=== PATIENT | female | born 1955 | race Caucasian/White ===

== ENCOUNTER 2022-05-10 06:24 | Day surgery (SDC) | payer MEDICARE, BC, SELFPAY ==
[2022-05-03 09:36] VITALS: BMI 34.4
--- NOTE | 2022-05-06 08:35 | MHC.SHP ---
Pre-Procedural Eval Section A Date of Service: 05/06/22 The patient is an INPATIENT: No Changes since office visit: No Cold of Flu in the past 2 weeks, No New Medical Problems, No Changes in Medication and No Patient answered all questions The History & Physical has been completed within 30 days and I have reviewed it.: Yes Section B Chief Complaint: Age-related nuclear cataract, left eye Allergies: Allergies Allergy/AdvReac Type Severity Reaction Status Date / Time No Known Allergies Allergy Verified 05/03/22 09:33 Plan Diagnosis/Plan: Unchanged I have reviewed the history and physical and performed a pertinent physical examination on my patient. No changes have occurred unless specified.
--- NOTE | 2022-05-07 09:03 | P.CONAN_ITS ---
Documented by User: Octavia Weber NP 05/07/22 09:04 HPI - Anesthesia Eval Consult details Narrative: 66yo F for Left?Cataract Extraction IOL Insertion PCP cleared No previous cataract PMFSH Past Medical History Medical History Arthritis COVID-19 vaccine series completed Diabetes Elevated cholesterol GERD (gastroesophageal reflux disease) HTN (hypertension) Hypothyroid IBS (irritable bowel syndrome) Lung mass Mild memory disturbance Pernicious anemia Sleep apnea Steatosis of liver Surgical History Surgical History H/O colonoscopy History of carpal tunnel release of both wrists History of esophagogastroduodenoscopy (EGD) Hx of dilation and curettage Social History Social History Are you a primary ostomy care nurse to a significant other at home: No Do you presently have visiting nurse or other home services: No Patient Tobacco Use Status: Former Tobacco user Quit Date: age 36 Tobacco use type: Cigarette Use of substances other than those prescribed or required for medical reasons: No Have you been hit, kicked, punched, or otherwise hurt by someone within the past year? If so, by whom?: No Are you DNR?: No Advance Directives: No Advance Directives Information Provided: Yes Advance Directives on File: No Recently lost weight without trying: No Eating poorly because of decreased appetite: No Nutrition Risks: No Nutritional Risk Poor oral hygiene: No (one dental implant upper right side) Meds Allergies Allergy/AdvReac Type Severity Reaction Status Date / Time No Known Allergies Allergy Verified 05/03/22 09:33 Home Medications Medication Instructions Recorded Confirmed Last Taken Type aspirin 81 mg tablet,delayed 81 mg PO DAILY 05/03/22 05/03/22 Unknown History release atenolol 50 mg tablet 1 tab PO DAILY 05/03/22 05/03/22 05/10/22 05:15 History levothyroxine 88 mcg tablet 1 tab PO DAILY 05/03/22 05/03/22 05/10/22 05:15 History lisinopril 5 mg tablet 1 tab PO DAILY 05/03/22 05/03/22 Unknown History metformin 500 mg tablet 500 mg PO QPM 05/03/22 05/03/22 Unknown History multivitamin 1 tab PO DAILY 05/03/22 05/03/22 Unknown History omeprazole 20 mg capsule,delayed 1 cap PO BID 05/03/22 05/03/22 05/10/22 05:15 H istory release potassium chloride 20 mEq 1 tab PO DAILY 05/03/22 05/03/22 Unknown History tablet,extended release simvastatin 20 mg tablet 1 tab PO DAILY 05/03/22 05/03/22 Unknown History triamterene 37.5 1 cap PO DAILY 05/03/22 05/03/22 Unknown History mg-hydrochlorothiazide 25 mg capsule Exam Exam Date and Time: May 07, 2022902 Height,Weight and Vital Signs: Height 5 ft 1 in Weight 82.554 kg Assessment and Plan Assessment Anesthesia Assessment: Chart Reviewed Documented by User: Mary Kate Courtney MD 05/10/22 07:13 FOR[facility]LY [facility], [facility] Past Medical History Medical History Arthritis COVID-19 vaccine series completed Diabetes Elevated cholesterol GERD (gastroesophageal reflux disease) HTN (hypertension) Hypothyroid IBS (irritable bowel syndrome) Lung mass Mild memory disturbance Pernicious anemia Sleep apnea Steatosis of liver Family History Family history of problems with anesthesia: No Surgical History Surgical History H/O colonoscopy History of carpal tunnel release of both wrists History of esophagogastroduodenoscopy (EGD) Hx of dilation and curettage History of Problems with Anesthesia: No Social History Social History Are you a primary ostomy care nurse to a significant other at home: No Do you presently have visiting nurse or other home services: No Patient Tobacco Use Status: Former Tobacco user Quit Date: age 36 Tobacco use type: Cigarette Use of substances other than those prescribed or required for medical reasons: No Have you been hit, kicked, punched, or otherwise hurt by someone within the past year? If so, by whom?: No Are you DNR?: No Advance Directives: No Advance Directives Information Provided: Yes Advance Directives on File: No Recently lost weight without trying: No Eating poorly because of decreased appetite: No Nutrition Risks: No Nutritional Risk Poor oral hygiene: No (one dental implant upper right side) Meds Allergies Allergy/AdvReac Type Severity Reaction Status Date / Time No Known Allergies Allergy Verified 05/03/22 09:33 Home Medications Medication Instructions Recorded Confirmed Last Taken Type aspirin 81 mg tablet,delayed 81 mg PO DAILY 05/03/22 05/03/22 Unknown History release atenolol 50 mg tablet 1 tab PO DAILY 05/03/22 05/03/22 05/10/22 05:15 History levothyroxine 88 mcg tablet 1 tab PO DAILY 05/03/22 05/03/22 05/10/22 05:15 History lisinopril 5 mg tablet 1 tab PO DAILY 05/03/22 05/03/22 Unknown History metformin 500 mg tablet 500 mg PO QPM 05/03/22 05/03/22 Unknown History multivitamin 1 tab PO DAILY 05/03/22 05/03/22 Unknown History omeprazole 20 mg capsule,delayed 1 cap PO BID 05/03/22 05/03/22 05/10/22 05:15 History release potassium chloride 20 mEq 1 tab PO DAILY 05/03/22 05/03/22 Unknown History tablet,extended release simvastatin 20 mg tablet 1 tab PO DAILY 05/03/22 05/03/22 Unknown History triamterene 37.5 1 cap PO DAILY 05/03/22 05/03/22 Unknown History mg-hydrochlorothiazide 25 mg capsule Exam Airway Mallampati Class: II (Multiple caps, implants lateral) TM Dist: >3cm Neck ROM: Full Heart: rrr Lungs: cta Assessment and Plan Assessment Anesthesia Assessment: Anesthesia Plan Discussed Final Anesthetic Review Family History of Problems with Anesthesia: No History of Problems with Anesthesia: No NPO: Yes ASA Class: III Final Preanesthetic Review: No Changes in Pt Med Stat, Meds/Allgs Chart Reviewed and Consent Obtained/Reviewed Patient Risk: Intermediate Procedure Risk: Intermediate Anesthetic Plan Anesthetic Plan: MAC: Disposition: Standard PACU
[2022-05-10 07:01] VITALS: BP 131/71; PULSE 68; RESP 16; TEMP 36.3; O2SAT 95
[2022-05-10] MEDS: Tetracaine HCl/PF 0.5% Oph Sol 4 ML DROPS 1 DROP EYE-LEFT (07:05)
[2022-05-10] MEDS: Cyclopentolate 1 % Ophth Sol 2 ML DRPBTL 1 DROP EYE-LEFT ×3 (07:07→07:21)
[2022-05-10] MEDS: Tropicamide 1 % Ophth Sol 3 ML BTL 1 DROP EYE-LEFT ×3 (07:08→07:22)
[2022-05-10] MEDS: Ketorolac Tromethamine 0.5% Op 5 ML DROPS 1 DROP EYE-LEFT ×3 (07:09→07:23)
[2022-05-10] MEDS: Phenylephrine HCL 2.5% Oph SoL 2 ML BOTTLE 1 DROP EYE-LEFT ×3 (07:11→07:24)
[2022-05-10] MEDS: Lactated Ringers 500 ML 50 ML IV (07:21)
[2022-05-10 07:25] LABS: Glucose, Whole Blood 158 mg/dL (60-115)
--- NOTE | 2022-05-10 09:49 | HO.PNOPHT ---
Ophthalmology Procedure Procedure Date of Service: 05/10/22 Ophthalmology Viscoelastic: Healon Duet Dual Pack Pro Ophthalmology Lenses: TECNIS [id number] (20.5) Procedure Notes: PREOPERATIVE DIAGNOSIS: Decreased visual acuity left eye secondary to cataract POSTOPERATIVE DIAGNOSIS: Same PROCEDURE: Left cataract extraction with intraocular lens insertion SURGEON: Tk Regan M.D. ANESTHESIA: Topical/MAC ESTIMATED BLOOD LOSS: None COMPLICATIONS: None After obtaining informed consent, the patient was brought to the operation room suite and placed in the supine position. After adequate sedation per anesthesia, topical drops of Tetracaine were given to the left eye. The eye was then prepped and draped in the usual sterile fashion. The operating room microscope was then positioned over the operative eye and a lid speculum placed. A paracentesis was created. Viscoelastic was then instilled into the anterior chamber. A three plane incision was then created temporally, utilizing a 2.85 mm keratome. Capsulotomy forceps were then utilized to create a circular tear capsulotomy. Hydrodissection and hydrodelineation were carried out until adequate mobilization of the nucleus occurred. Phacoemulsification was then utilized to remove the dense central nucleus followed by removal of the cortical material utilizing the automated aspiration irrigation unit. Viscoat elastic was instilled into the posterior capsular bag followed by placement of a posterior chamber intraocular lens without difficulty. The residual Viscoat elastic was then removed utilizing the automated IA machine. The wound was check and found to be watertight. The patient tolerated the procedure well and the lid speculum was removed. Intracameral injection of Vigamox 0.1 mL followed by a subtenon injection of Kenalog-40 0.2 mL were administered. The patient will be seen in the a.m.
[2022-05-10 10:07] VITALS: BP 124/69; PULSE 70; RESP 12; TEMP 36.8; O2SAT 100
== END 2022-05-10 10:19 | disposition home or self-care (01) ==
PROVIDERS: PCP Internal Medicine; Visit Provider Ophthalmology
PROC: (CPT 66985; principal; 2022-05-10 09:20)
DX: H25.12 Age-related nuclear cataract, left eye (principal); I10 Essential (primary) hypertension; E11.9 Type 2 diabetes mellitus without complications; Z79.82 Long term (current) use of aspirin; Z79.84 Long term (current) use of oral hypoglycemic drugs; Z79.899 Other long term (current) drug therapy
CPT/HCPCS: 66984; 82947; J2250; J3010; J3301; J7999; V2632